=== PATIENT | male | born 1995 | race Caucasian/White ===

== ENCOUNTER 2023-02-19 00:35 | Emergency (ER) | payer MEDICAID ==
[~2023-02-19] VITALS: Ht 180.3 cm; Wt 81.6 kg
[2023-02-19 00:35] VITALS: BP 108/57
--- NOTE | 2023-02-19 00:35 | NUR ---
PT BIBA ALS. TAKEN TO BED 10. [place] [employer] AT BEDSIDE
--- NOTE | 2023-02-19 00:35 | NUR ---
Dr. Thomas examining patient.
--- NOTE | 2023-02-19 00:35 | NUR ---
Swetha cantu in ED - 02/19/23 at 0042 by PETRA HADLEY BAUTISTA, ROGER. TAKEN TO ANTOINETTE LYLES
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
[2023-02-19] MEDS ORDERED: NACL 0.9% 1,000 ML IV ONE ×2 (00:50→01:10)
--- NOTE | 2023-02-19 02:00 | NUR ---
Labs and urine collected sent to lab
[2023-02-19 02:14] LABS: ALBUMIN 2.8 g/dL (3.4-5.0); ANION GAP 13.8 (8-16); CARBON DIOXIDE 24.1 mmol/L (21-32); CREATININE 1.3 mg/dL (0.6-1.3); POTASSIUM 3.9 mmol/L (3.5-5.1); TOTAL BILIRUBIN 0.1 mg/dL (0.0-1.0)
[2023-02-19 02:21] LABS: BASOPHILS # (AUTO) 0.1 K/uL (0.00-0.22); BASOPHILS % (AUTO) 0.5 % (0.0-2.0); EOSINOPHILS # (AUTO) 0.2 K/uL (0-0.4); EOSINOPHILS % (AUTO) 0.6 % (0.0-4.0); HEMATOCRIT 37.6 % (36-52); HEMOGLOBIN 12.5 g/dL (12.0-18.0); LYMPHOCYTES # (AUTO) 1.9 K/uL (2.0-11.5); LYMPHOCYTES % (AUTO) 6.8 % (20.5-51.1); MEAN CORPUSCULAR HEMOGLOBIN 28 pg (27-31); MEAN CORPUSCULAR HGB CONC 33 g/dL (33-37); MEAN CORPUSCULAR VOLUME 84.2 fL (80-94); MONOCYTES # (AUTO) 1.8 K/uL (0.8-1.0); MONOCYTES % (AUTO) 6.2 % (1.7-9.3); NEUTROPHILS # (AUTO) 24.3 K/uL (1.8-7.7); NEUTROPHILS % (AUTO) 85.9 % (42.2-75.2); PLATELET COUNT (AUTO) 367 K/uL (140-450); RED BLOOD CELL COUNT(AUTO) 4.47 MIL/uL (4.20-6.10); RED CELL DISTRIBUTION WIDTH 13.7 % (11.6-13.7); WHITE BLOOD COUNT (AUTO) 28.2 K/uL (4.8-10.8)
[2023-02-19 03:06] LABS: BARBITURATE, URINE NEGATIVE ng/ml (NEG <=200)
[2023-02-19 03:07] LABS: BENZODIAZEPINE, URINE NEGATIVE ng/mL (NEG <=200); CANNABINOID, URINE POSITIVE ng/mL (NEG <=50); COCAINE, URINE NEGATIVE ng/mL (NEG <=300); OPIATE, URINE NEGATIVE ng/mL (NEG <=2000); PHENCYCLIDINE SCREEN,URINE NEGATIVE ng/mL (NEG <=25)
[2023-02-19] MEDS ORDERED: cefTRIAXone 2,000 MG in DEXTROSE 5% 100 ML IV ONE (03:10)
[2023-02-19 03:21] LABS: APPEARANCE,URINE CLEAR (CLEAR); BILIRUBIN,URINE NEGATIVE (NEGATIVE); BLOOD, URINE NEGATIVE (NEGATIVE); COLOR,URINE YELLOW (YELLOW); LEUKOCYTE ESTERASE ,URINE NEGATIVE (NEGATIVE); NITRITE, URINE NEGATIVE (NEGATIVE); UGLUCOSE NEGATIVE (NEGATIVE)
[2023-02-19] MEDS ORDERED: cefTRIAXone 2,000 MG VIAL ONE (03:38)
--- NOTE | 2023-02-19 04:05 | NUR ---
Pt resting at this time, denies discomfort.
--- NOTE | 2023-02-19 04:52 | NUR ---
Lab drawn sent to lab
[2023-02-19 04:58] LABS: BASOPHILS # (AUTO) 0.1 K/uL (0.00-0.22); BASOPHILS % (AUTO) 0.5 % (0.0-2.0); EOSINOPHILS # (AUTO) 0.1 K/uL (0-0.4); EOSINOPHILS % (AUTO) 0.7 % (0.0-4.0); HEMATOCRIT 37.1 % (36-52); HEMOGLOBIN 12.3 g/dL (12.0-18.0); LYMPHOCYTES # (AUTO) 2.1 K/uL (2.0-11.5); LYMPHOCYTES % (AUTO) 11.6 % (20.5-51.1); MEAN CORPUSCULAR HEMOGLOBIN 27 pg (27-31); MEAN CORPUSCULAR HGB CONC 33 g/dL (33-37); MEAN CORPUSCULAR VOLUME 82.2 fL (80-94); MONOCYTES # (AUTO) 0.8 K/uL (0.8-1.0); MONOCYTES % (AUTO) 4.4 % (1.7-9.3); NEUTROPHILS # (AUTO) 15.3 K/uL (1.8-7.7); NEUTROPHILS % (AUTO) 82.8 % (42.2-75.2); PLATELET COUNT (AUTO) 363 K/uL (140-450); RED BLOOD CELL COUNT(AUTO) 4.51 MIL/uL (4.20-6.10); WHITE BLOOD COUNT (AUTO) 18.4 K/uL (4.8-10.8)
[2023-02-19] MEDS ORDERED: AMOX-1230 PO (05:10)
[2023-02-19 05:11] VITALS: BP 114/75
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
== END 2023-02-19 05:11 ==
LOC: MED 00:35
DX: F15.10 Other stimulant abuse, uncomplicated (principal); F12.90 Cannabis use, unspecified, uncomplicated; J18.9 Pneumonia, unspecified organism; D72.829 Elevated white blood cell count, unspecified; Z79.2 Long term (current) use of antibiotics; V89.2XXA Person injured in unspecified motor-vehicle accident, traffic, initial encounter; Y93.89 Activity, other specified; Y92.410 Unspecified street and highway as the place of occurrence of the external cause; Y99.8 Other external cause status
CPT/HCPCS: 36415; 71045; 80053; 80305; 81003; 85025; 87040; 87086; 93005; 96361; 96365; 99285; J0696; J7030; Q0092